=== PATIENT | male | born 1975 | race Caucasian/White ===

== ENCOUNTER 2019-12-23 19:11 | Emergency (ER) | payer BC, SELFPAY ==
[2019-12-23 19:12] VITALS: BP 171/97; PULSE 90; RESP 18; TEMP 36.4; O2SAT 98; BMI 30.9
--- NOTE | 2019-12-23 19:35 | RAD_ITS ---
STUDY: X-RAY - RIGHT HAND, ATTENTION FIRST FINGER REASON FOR EXAM: Male, 44 years old. laceration on right first digit from table saw. TECHNIQUE: 3 view(s) of the finger were obtained. COMPARISON: None. FINDINGS: Multiple punctate radiopaque densities are scattered around the head and neck of the proximal phalanx of the thumb and base of the thumb as well as in the dorsal aspect of the overlying soft tissues. No visualized fracture. Mild soft tissue swelling is present. metacarpal head. Normal metacarpophalangeal joint. Normal proximal phalanx. Normal middle phalanx. Normal distal phalanx. Normal proximal interphalangeal joint. Normal distal interphalangeal joint. RAD/Finger(s) Min 2 Views IMPRESSION: 1. Multiple punctate radiopaque densities are scattered around the head and neck of the proximal phalanx of the thumb and base of the thumb as well as in the dorsal aspect of the overlying soft tissues. No visualized fracture. Mild soft tissue swelling is present. Electronically Signed: Jeremiah Piña MD at 20:31 EDT , Service support ,
--- NOTE | 2019-12-23 21:08 | ED.DCSUM_ITS ---
- ER Visit Summary Date of Service: 12/23/19 Chief Complaint: Laceration History of Present Illness: The patient is a 44 M with no primary care physician. He is right-hand dominant works as a ybarra. He reports that at home today at approximately 2 PM he cut his right thumb with a band saw. He denies any pain. He denies any paresthesias distally. Physical Examination: Vitals: Stable. Afebrile. General: Well-nourished and well-developed. Head: Normocephalic atraumatic. Neck: Supple, no lymphadenopathy. No JVD. Nontender. Cardiovascular: Regular rate and rhythm. No murmurs. Respiratory: No respiratory distress. Clear to auscultation bilaterally. Abdominal: Soft, nontender, nondistended, normal bowel sounds. No guarding, rebound, or peritoneal signs. Back: Nontender. Extremities: 4 cm flap laceration on the medial side of the back of his right thumb. He is neurovascular intact distal this. He is able to extend against resistance. However, there is a 2 cm longitudinal laceration in the tendon itself. There are multiple metallic foreign bodies present. Skin: Normal color, no rash. Neurologic: Alert and oriented ?3. Cranial nerves II through XII are intact. Normal strength and sensation. Psych: Normal affect. Test Results: X-ray shows no fracture. However, there are approximately 15 metallic foreign bodies. Repeat x-ray after being washed out shows approximately 7 metallic foreign body still present. Emergency Department Course and Treatment: Patient was given Keflex p.o. His tetanus is up-to-date. He refused pain medications. He had a digital block performed with bupivacaine. This was cleansed with Shur-Clens and copiously irrigated with normal saline. Attempts were made to remove all the metallic foreign bodies without success. A dressing was placed and he was placed in a aluminum foam splint. Treatment Plan: The patient was discussed with Dr. Melendez, a hand surgeon at [facility], who would like him to follow-up in 2-3 days for another exam. He will be discharged with Keflex and Coupland. Return to the emergency department for any worsening symptoms. Disposition: To home in improved and stable condition. Impression: 1. Laceration right thumb, 4 cm, repaired. 2. Longitudinal laceration right first extensor tendon, not repaired. 3. Retained metallic foreign bodies right thumb. Procedure note: Wound was cleansed with chlorhexidine soap. Anesthetized with a digital block with bupivacaine. Copiously irrigated with normal saline. Wound was explored multiple metallic foreign bodies were removed. It was closed with 5 simple interrupted 4-0 ethilon sutures. The patient tolerated it well. This note was generated with [employer] dictation software. It may contain incorrect words, spelling, and punctuation that were not noted in review of the chart prior to signing ED Disposition - Plan for ED Patient: Instructions: ED Foreign Body Soft Tissue Prescriptions: Cephalexin [Keflex] 500 mg PO Q6 #28 cap Prescription Printed Hydrocodone Bitart/Apap 5-325 [Coupland 5MG-325MG] 1 tab PO Q4H PRN PRN 2 Days #10 tab PRN Reason: Pain Prescription Printed Referrals: Care Physician,No Primary [Primary Care Provider] - Additional Instructions: Follow up with Dr. Melendez, a hand surgeon at [facility] in 2-3 days for another exam. His phone number is [phone].
--- NOTE | 2019-12-23 21:25 | RAD_ITS ---
STUDY: X-RAY - RIGHT HAND, ATTENTION FIRST FINGER REASON FOR EXAM: Male, 44 years old. FOREIGN BODIES. TRIED REMOVING FROM PREVIOUS IMAGES. TECHNIQUE: 3 view(s) of the finger were obtained. COMPARISON: December 23, 2019 at 7:35 PM FINDINGS: Follow-up x-ray at 9:17 PM on the same date. Interval decrease in number of punctate radiopaque density seen overlying proximal and distal phalanges of the thumb compared to the initial study, although multiple densities remain. If this is external this can be confirmed by the referring service or marketing technologist. Normal metacarpal head. Normal metacarpophalangeal joint. No visualized fracture. Mild soft tissue swelling is present. Normal proximal phalanx. Normal middle phalanx. Normal distal phalanx. Normal proximal interphalangeal joint. Normal distal interphalangeal joint. RAD/Finger(s) Min 2 Views IMPRESSION: Interval decrease in number of punctate radiopaque density seen overlying proximal and distal phalanges of the thumb compared to the initial study, although multiple densities remain. If this is external this can be confirmed by the referring service or marketing technologist. Electronically Signed: Jeremiah Piña MD at 22:52 EDT , Service support ,
[2019-12-23] MEDS: Cephalexin 250 MG Capsule 500 MG PO (21:55)
[2019-12-23] MEDS: Bupivacaine Mpf 0.5% 30 ML VIAL 5 ML INFILT (21:55)
[2019-12-23 22:14] VITALS: BP 150/72; PULSE 82; RESP 16; O2SAT 98
== END 2019-12-23 22:14 | disposition home or self-care (01) ==
LOC: ED 19:36
PROVIDERS: Emergency Provider Emergency Medicine
DX: S66.221A Laceration of extensor muscle, fascia and tendon of right thumb at wrist and hand level, initial encounter (principal); S61.021A Laceration with foreign body of right thumb without damage to nail, initial encounter; W31.2XXA Contact with powered woodworking and forming machines, initial encounter; Y93.9 Activity, unspecified; Y92.009 Unspecified place in unspecified non-institutional (private) residence as the place of occurrence of the external cause; Y99.9 Unspecified external cause status
CPT/HCPCS: 12002; 73140; 99285

== ENCOUNTER 2021-06-30 20:57 | Emergency (ER) | payer BC, SELFPAY ==
[2021-06-30 20:58] VITALS: BP 182/102; PULSE 86; RESP 18; TEMP 36.4; O2SAT 100; BMI 32.1
--- NOTE | 2021-06-30 21:06 | EDS_ITS ---
HPI History of Present Illness Chief Complaint: Foreign Body Detail of Chief Complaint: Splinter underneath right thumbnail Informant: patient Narrative Narrative: Patient presents to the emergency department with complaint of a splinter under his right thumbnail. Patient states that he slipped in the mud and his finger brushed up against a wooden post causing a splinter to go into his thumb. Patient is right-hand dominant. Patient is up-to-date on tetanus. Tetanus Immunization: <5 years PFSH PFSH Home Medications cephalexin 500 mg PO Q6 #28 capsule 06/30/21 [Rx Last Taken Unknown] Allergy/AdvReac Type Severity Reaction Status Date / Time No Known Allergies Allergy Verified 06/30/21 20:59 Social History Smoking Status: Never smoker ROS ROS ED Constitutional Constitutional ED: Reports systems reviewed and no addt'l complaints, except as documented; Denies body ache(s), change in weight or chills Eyes Eyes: Denies acute decrease in peripheral vision, change in vision, double vision or loss of vision ENT ENT ED: Reports none; Denies ear pain, lip swelling, loss taste/smell, neck pain, otalgia or sore throat Cardiovascular Cardiovascular: Reports none; Denies abdominal pain, chest pain with activity, leg edema, lightheadedness, palpitations, rapid heart rate or syncope Respiratory/Chest Respiratory/Chest: Reports none; Denies change in mental status, dry cough, dyspnea, hemoptysis, shortness of breath at rest or shortness of breath with exertion Gastrointestinal Gastrointestinal: Reports none; Denies abdominal pain, change in stool teddy racter, diarrhea, hematemesis, hematochezia, melena, rectal bleeding or vomiting Genitourinary Genitourinary ED: Reports none; Denies abdominal discomfort, anuria, dysuria, genital pain or polyuria Musculoskeletal Musculoskeletal: Reports none and other Details: Splinter underneath right thumbnail ; Denies arthralgias, back pain, difficulty walking, extremity pain, muscle weakness or myalgias Integumentary Reports none; Denies abscess or rash Neurologic Neurologic: Reports none; Denies abnormal gait, confusion, focal weakness, frequent falls, headache(s), loss of vision, numbness, paresthesias, radicular pain, vertigo or weakness Psychiatric Psychiatric: Reports systems reviewed and no addt'l complaints, except as documented and none; Denies behavioral changes, confusion, difficulty concentrating, hallucinations, suicidal ideation, tactile hallucinations or visual hallucinations Endocrine Endocrinology: Denies none, cold intolerance, excessive sweating, fatigue or heat intolerance Hematologic/Lymphatic Hematologic/Lymphatic: Reports none; Denies anemia, easy bleeding or easy bruising Allergic/Immunologic Allergic/Immunologic ED: Denies as per HPI, none, lip swelling, mouth swelling, throat swelling, tongue swelling or hives EXAM Physical Exam Const Vital Signs: 06/30/21 20:58 Temperature 97.6 F L Temperature Source Temporal Pulse Rate 86 Respiratory Rate 18 Blood Pressure 182/102 H Blood Pressure Mean 128 Pulse Ox 100 Oxygen Delivery Method Room Air Positive well nourished and well developed General Appearance ED: well developed and NAD HEENT Reports TM's clear and moist mucous membranes normocephalic and atraumatic; Negative for trauma or tenderness Tympanic Membrane ED: Yes TM's clear Eyes PERRL and EOMs intact bilaterally General Eye ED: Negative for pale conjunctiva or scleral icterus Neck no lymphadenopathy, supple and no JVD General: Negative for tenderness Chest Wall inspection of chest normal and palpation of chest normal Chest: Negative for tenderness Resp normal respiratory effort and clear to auscultation bilaterally Effort and Inspection: Negative for respiratory distress or pain with movement Auscultation: Negative for rhonchi, wheezes or diminished lung sounds Cardio regular rate, regular rhythm, S1 normal heart sound, S2 normal heart sound and no murmurs Peripheral Pulses: pulses 2+ throughout GI normal to inspection, nondistended, normoactive bowel sounds, soft to palpation, non-tender, non-distended and no masses Back/Spine no CVA tenderness and no thoracic nor lumbar tenderness Extremity normal to inspection Extremity Narrative: Evaluation of the right thumb reveals a large splinter underneath the thumbnail traversing to underneath the nail fold. Neurovascularly intact. No active bleeding. General Extremety ED: Negative for edema General Extremity: Negative for edema Neuro oriented x3, CN's II-XII intact bilaterally, no sensory deficits noted and gait normal Sensorium / Orientation: awake, alert, oriented to person, oriented to place and oriented to time Motor Exam: strength 5/5 throughout and strength abnormal Psych mental status grossly normal Skin no rashes or lesions noted and no wounds MDM MDM MDM Narrative Medical decision making narrative: Patient was offered a digital block and attempted removal of splinter from under nail. Patient agreed. Finger was sterilely draped and prepped and skin was cleansed with alcohol. Using 1% lidocaine initially a total of 8 cc used and this did not provide adequate anesthesia therefore 4 more cc were used. Patient had adequate anesthesia. I was able to use curved hemostats underneath the nail to lift the nail off the nail bed along either side of the splinter. Using splinter forceps then I was able to grasp the splinter and easily remove it. This point we discussed potentially obtaining an x-ray although they understand that would would not show up on x-ray I felt this was low value and they are in agreement. Patient will be started on Keflex for a week. He is advised to return if increasing pain, redness, swelling, purulent drainage, or condition worsen anyway. Patient to follow-up with primary care physician in 3 to 5 days for wound check. Discharge Plan Triage Chief Complaint: Foreign Body ED Provider: Michelle Gibson Dx/Rx/DC Orders Clinical Impression: Splinter in skin Instructions: ED Foreign Body, Soft Tissue (Removed) Prescriptions: New cephalexin [cephalexin] 500 MG capsule 500 mg PO Q6 Qty: 28 RF: 0 Primary Care Provider: Angélica Coleman Referrals: Angélica Coleman MD [Primary Care Provider] - 3-5 Days Disposition Disposition: Home, Self Care
[2021-06-30] MEDS: Lidocaine 1% (20 ml mdv) 20 ML Vial 8 ML INFILT (21:32)
[2021-06-30] MEDS: Cephalexin 250 MG Capsule 500 MG PO (21:36)
== END 2021-06-30 21:37 | disposition home or self-care (01) ==
PROVIDERS: Emergency Provider Emergency Medicine; PCP Internal Medicine; Visit Provider Emergency Medicine
DX: S60.351A Superficial foreign body of right thumb, initial encounter (principal); W45.8XXA Other foreign body or object entering through skin, initial encounter; W18.49XA Other slipping, tripping and stumbling without falling, initial encounter
CPT/HCPCS: 11765; 99283

== ENCOUNTER 2021-12-24 19:44 | Emergency (ER) | payer BC, SELFPAY ==
[2021-12-24 19:47] VITALS: BP 143/93; PULSE 92; RESP 19; TEMP 37.2; O2SAT 96; BMI 30.8
[2021-12-24 19:49] VITALS: BP 143/93; PULSE 92; RESP 19; TEMP 37.2; O2SAT 96
[2021-12-24 21:16] VITALS: BP 148/87; PULSE 73; RESP 18; TEMP 37; O2SAT 95
--- NOTE | 2021-12-24 21:42 | ED.VIS.GI ---
HPI HPI - GI History of Present Illness Chief Complaint: GI Bleed Narrative Narrative: 46-year-old male presenting with bleeding from his rectum. He states he developed a hemorrhoid a few days ago. He has not been straining to have bowel movements too hard. He states he has had 3 bowel movements this week. He states 3 days ago it was hurting and yesterday was not so bad and today when he was having bowel movement it ruptured. He is not on any blood thinners. He has not had any black or bloody stools prior to this. He does not have significant pain. No history of hemorrhoids. He states he does not have any medical problems. He feels otherwise well [facility] Home Medications NK 12/24/21 [History Last Taken Unknown] Allergy/AdvReac Type Severity Reaction Status Date / Time No Known Allergies Allergy Verified 12/24/21 19:50 Social History Smoking Status: Never smoker ROS ROS ED Constitutional Constitutional ED: Denies chills or fever(s) ENT ENT ED: Denies rhinorrhea or sore throat Cardiovascular Cardiovascular: Denies chest pain or palpitations Respiratory/Chest Respiratory/Chest: Denies cough or dyspnea Gastrointestinal Gastrointestinal: Reports other Details: Bleeding hemorrhoid ; Denies abdominal pain, diarrhea, nausea or vomiting Genitourinary Genitourinary ED: Denies dysuria or hematuria Musculoskeletal Musculoskeletal: Denies arthralgias Integumentary Denies abscess or Abrasions Neurologic Neurologic: Denies headache(s) Psychiatric Psychiatric: Denies anxiety or depression EXAM Physical Exam Const Vital Signs: 12/24/21 19:47 12/24/21 19:49 12/24/21 21:16 Temperature 99.0 F 99.0 F 98.6 F Temperature Source Temporal Temporal Oral Pulse Rate 92 92 73 Respiratory Rate 19 H 19 H 18 Blood Pressure 143/93 H 143/93 H 148/87 H Blood Pressure Mean 109 109 107 Pulse Ox 96 96 95 Oxygen Delivery Method Room Air Room Air Room Air Positive well nourished General Appearance ED: NAD HEENT Reports moist mucous membranes normocephalic and atraumatic Eyes PERRL and EOMs intact bilaterally General Eye ED: Negative for pale conjunctiva Cardio regular rate and regular rhythm GI non-tender and non-distended Narrative: Patient lying left lateral recumbent and on exam he has a hemorrhoid which is not actively bleeding at the 12 o'clock position perirectally. Its not significantly tender. Does not appear to be an abscess. It is flat now. Neuro CN's II-XII intact bilaterally Sensorium / Orientation: alert Psych mental status grossly normal and thought process normal MDM MDM MDM Narrative Medical decision making narrative: Patient has a ruptured hemorrhoid at the 12 o'clock position while laying left lateral recumbent. Not significantly tender. Is not on any blood thinners. He is counseled to keep this clean and after he defecates he is to clean this very well. He will be given Proctofoam for home. Return precautions were discussed. Impression: 1. Bleeding hemorrhoid Lab Data Attestation: I reviewed the patient's lab results. Discharge Plan Triage Chief Complaint: GI Bleed ED Provider: Chris Bateman Dx/Rx/DC Orders Prescriptions: No Action NK Primary Care Provider: Angélica Coleman Referrals: Angélica Coleman MD [Primary Care Provider] -
[2021-12-24 21:47] VITALS: BP 154/86; PULSE 74; RESP 18; O2SAT 96; O2SAT 99
== END 2021-12-24 22:01 | disposition home or self-care (01) ==
PROVIDERS: Emergency Provider Student in an Organized Health Care Education/Training Program; PCP Internal Medicine; Visit Provider Student in an Organized Health Care Education/Training Program
DX: K64.9 Unspecified hemorrhoids (principal); K62.5 Hemorrhage of anus and rectum
CPT/HCPCS: 99282